=== PATIENT | male | born 1945 | race Caucasian/White ===

== ENCOUNTER 2019-06-24 12:53 | Emergency (ER) | payer MEDICARE, BC ==
[~2019-06-24] VITALS: Ht 182.9 cm; Wt 92.8 kg
[~2019-06-24 12:53] MED LIST: ENOX40SY7 SQ; HYDR-3972 PO; LIDOcaine 1% W/epiNEPHrine 1:100,000 20ml vial ONE; RIVA1TAB PO
[2019-06-24] MEDS ORDERED: TETanus/Pertussis (Acell)/Diphther VAC/PF (Tdap-Adult) 0.5ml syringe IMVAC ONE (13:40)
[2019-06-24 14:28] VITALS: BP 148/80
== END 2019-06-24 14:28 | disposition home or self-care (01) ==
LOC: ER 12:54
DX: S61.411A Laceration without foreign body of right hand, initial encounter (principal); I10 Essential (primary) hypertension; Z72.89 Other problems related to lifestyle; Z88.1 Allergy status to other antibiotic agents; Z79.899 Other long term (current) drug therapy; W01.0XXA Fall on same level from slipping, tripping and stumbling without subsequent striking against object, initial encounter; Y93.89 Activity, other specified; Y92.89 Other specified places as the place of occurrence of the external cause; Y99.8 Other external cause status
CPT/HCPCS: 12002; 73120; 90471; 90715; 99283

== ENCOUNTER 2022-09-26 08:51 | Outpatient (CLI) | payer MEDICARE, BC ==
[~2022-09-26 08:51] MED LIST changes: -LIDOcaine 1% W/epiNEPHrine 1:100,000 20ml vial ONE
[2022-09-26] MEDS ORDERED: iohexol 300mg/ml 100ml inj. ONE (09:12)
== END 2022-09-26 23:59 | disposition home or self-care (01) ==
LOC: RAD 08:51
PROVIDERS: ATTEND Nurse Practitioner Family
DX: K80.50 Calculus of bile duct without cholangitis or cholecystitis without obstruction (principal); E80.7 Disorder of bilirubin metabolism, unspecified; K76.89 Other specified diseases of liver
CPT/HCPCS: 74177; J3490; Q9967

== ENCOUNTER 2023-01-13 13:18 | Day surgery (SDC) | payer MEDICARE, BC ==
[2023-01-06 11:07] LABS: BASOPHILS # (AUTO) 0.1 X10'3 (0-0.2); BASOPHILS % (AUTO) 0.7 % (0-1); EOSINOPHILS # (AUTO) 0.5 X10'3 (0-0.9); EOSINOPHILS % (AUTO) 6.6 % (0-6); LYMPHOCYTES # (AUTO) 1.2 X10'3 (1.1-4.8); LYMPHOCYTES % (AUTO) 15.7 % (21-51); MEAN CORPUSCULAR HEMOGLOBIN 32.4 PG (27.0-31.0); MEAN CORPUSCULAR HGB CONC 33.5 g/dL (33.0-36.5); MEAN CORPUSCULAR VOLUME 96.6 FL (78-98); MEAN PLATELET VOLUME 8.6 FL (7.4-10.4); MONOCYTES # (AUTO) 0.6 X10'3 (0-0.9); MONOCYTES % (AUTO) 8.5 % (2-12); NEUTROPHILS # (AUTO) 5.1 X10'3 (1.8-7.7); NEUTROPHILS % (AUTO) 68.5 % (42-75); PRE OP HEMATOCRIT 42.8 % (42.0-52.0); PRE OP HEMOGLOBIN 14.4 g/dL (14.0-17.9); PRE OP PLATELET COUNT 271 X10'3 (140-440); PRE OP WHITE BLOOD COUNT 7.5 10'3 (4.8-10.8); RED BLOOD COUNT 4.44 X10'6 (4.70-6.10); RED CELL DISTRIBUTION WIDTH 13.6 % (11.5-14.5)
[2023-01-06 11:49] LABS: ALBUMIN 3.7 G/DL (3.4-5.0); ALBUMIN/GLOBULIN RATIO 0.9 (1.1-1.5); ALKALINE PHOSPHATASE 196 IU/L (46-116); BLOOD UREA NITROGEN 18 MG/DL (7-18); BUN/CREATININE RATIO 18.2 (10.0-20.0); CALCIUM 11.4 MG/DL (8.5-10.1); CHLORIDE 103 MMOL/L (99-107); CREATININE 0.99 MG/DL (0.60-1.10); PRE OP ALT 21 U/L (30-65); PRE OP ANION GAP 5 (8-16); PRE OP AST 20 U/L (10-37); PRE OP BILIRUB, TOTAL 0.7 MG/DL (0.0-1.0); PRE OP GLUCOSE 102 MG/DL (70-104); PRE OP POTASSIUM 4.2 MMOL/L (3.4-5.1); PRE OP SODIUM 138 MMOL/L (135-145); TOTAL CARBON DIOXIDE 30.4 MMOL/L (24-32); TOTAL PROTEIN 7.7 G/DL (6.4-8.2); eGFR 74 ML/MIN
[2023-01-13] VITALS (11 sets, daily range): BP systolic 94–160; BP diastolic 56–93; PULSE 61–92; RESP 12–16; TEMP 97.4; O2SAT 97–100
[~2023-01-13] VITALS: Ht 182.9 cm; Wt 76.2 kg
[~2023-01-13 13:18] MED LIST changes: +AMLO5TAB16 PO; +CHOL20002 PO; -ENOX40SY7 SQ; +HYDR-3968 PO; -HYDR-3972 PO; +HYDR25TA5 PO; +LISI20TA28 PO; +PANT40TA54 PO; -RIVA1TAB PO; +RIVA20TA PO; +TAMSULOSIN PO; +TRAM50TA2; +URSO300C2 PO; +famotidine 20mg tablet PO ONE; +glucagon, human recombinant 1mg kit ONE; +ringers solution, lacted 1,000 ML IV SCH
[2023-01-13] MEDS ORDERED: glucagon, human recombinant 1mg kit ONE ×2 (14:47→16:01)
[2023-01-13] MEDS ORDERED: sevoflurane 250ml liquid IH ONE (14:47)
[2023-01-13] MEDS ORDERED: propofol inj 20 ML IV ONE (14:48)
[2023-01-13] MEDS ORDERED: rocuronium 10mg/ml inj IV ONE (14:50)
[2023-01-13] MEDS ORDERED: midazolam 1 mg/ML 2ml injection ONE (14:51)
[2023-01-13] MEDS ORDERED: fentaNYL/PF 50MCG/1 ML 2ML syringe ONE (14:51)
[2023-01-13] MEDS ORDERED: iohexol 300mg/ml 100ml inj. ONE (14:56)
[2023-01-13] MEDS ORDERED: neostigmine methylsulfate 1 MG/ML 10ml vial ONE (15:57)
[2023-01-13] MEDS ORDERED: glycopyrrolate 0.2mg/ml inj ONE (15:57)
--- NOTE | 2023-01-13 15:59 | NUR ---
Received from OR via [facility], accompanied by Anesthesiologist MILLA and report given by Anesthesiolgist. PATIENT PRESENTS ON 10L VIA MASK WITH SPO2 AT 100%. HE IS AROUSABLE BY NAME AND DOES NOT C/O PAIN/NAUSEA AT THIS TIME. NO S/S OF DISTRESS NOTED. PIV TO LEFT FA IS DISLODGED, INSERTED 20G TO RIGHT HAND AND HOOKED UP TO LR AT 100ML/HR. SCD'S ARE IN PLACE BILATERAL LE. WILL CONTINUE TO ASSESS.
--- NOTE | 2023-01-13 16:45 | NUR ---
PER DR CONTEH, DO NOT CONTINUE XARELTO, HAVE PATIENT FOLLOW UP WITH PCP TO MAKE THAT DECISION PATIENT HAS NOT TAKEN XARELTO SINCE 10/17/22. OK TO CONTINUE ALL OTHER MEDICATIONS DIRECTED.
[2023-01-13] MEDS ORDERED: ondansetron/PF 4mg/2ml inj IV ONE (17:05)
--- NOTE | 2023-01-13 17:29 | NUR ---
PT STABLE FOR D/C PER MD ORDERS. ALL D/C PPWK WAS REV'D WITH PATIENT AND ALL QUESTIONS, COMMENTS, AND CONCERNS WERE ANSWERED AT THIS TIME. PT HAD 1 BOUT OF NAUSEA WITH VOMITING, ZOFRAN ADMINISTERED WITH POSITIVE RESULTS. PATIENT DOES NOT C/O PAIN OR NAUSEA UPON D/C. PATIENT TRANSFERRED TO W/C WITHOUT ASSISTANCE. PATIENT TAKEN OUT TO VEHICLE WHERE FRIEND WAS DRIVING HOME. PATIENT TRANSFERRED INTO VEHICLE WITHOUT INCIDENT. ALL PERSONAL BELONGINGS WERE SENT WITH PATIENT.
== END 2023-01-13 17:29 | disposition home or self-care (01) ==
LOC: PAS 13:18
PROVIDERS: ATTEND Internal Medicine Gastroenterology
DX: Z46.59 Encounter for fitting and adjustment of other gastrointestinal appliance and device (principal); K80.50 Calculus of bile duct without cholangitis or cholecystitis without obstruction; K44.9 Diaphragmatic hernia without obstruction or gangrene; F12.90 Cannabis use, unspecified, uncomplicated; I45.4 Nonspecific intraventricular block; I48.91 Unspecified atrial fibrillation; J45.909 Unspecified asthma, uncomplicated; F32.A Depression, unspecified; Z88.1 Allergy status to other antibiotic agents; Z72.89 Other problems related to lifestyle; Z98.890 Other specified postprocedural states; Z86.718 Personal history of other venous thrombosis and embolism; Z79.899 Other long term (current) drug therapy; Z87.891 Personal history of nicotine dependence
CPT/HCPCS: 36415; 43264; 43275; 80053; 82948; 85025; J1610; J2250; J2405; J2704; J2710; J3010; J3490; J7120; Q9967; Z7506; Z7508; Z7512; Z7610; 76000; A4618; C1769; C1889